=== PATIENT | male | born 1955 | race Caucasian/White ===

== ENCOUNTER 2020-03-19 07:43 | Outpatient (CLI) | payer BC, SELFPAY ==
--- NOTE | 2020-03-19 07:45 | ECG_ITS ---
Measurements Intervals [place] Rate: 66 P: 4 DC: 134 QRS: 4 QRSD: 89 T: 18 QT: 384 QTc: 402 Interpretive Statements SINUS RHYTHM DELAYED PRECORDIAL R/S TRANSITION BASELINE ARTIFACT- I, III, AVR, AVL, AVF BORDERLINE ECG Electronically Signed On 03-19-2020 8:13:26 RN [employer] by Wayne Payan D.O.
== END 2020-03-19 07:44 | disposition home or self-care (01) ==
PROVIDERS: PCP Pediatrics; Visit Provider Plastic Surgery
DX: Z01.818 Encounter for other preprocedural examination (principal); I10 Essential (primary) hypertension; R94.31 Abnormal electrocardiogram [ECG] [EKG]
CPT/HCPCS: 93005

== ENCOUNTER 2020-03-22 00:47 | Outpatient (CLI) | payer BC, SELFPAY ==
[2020-03-22 18:47] LABS: SARS-CoV-2 RNA PCR Negative
== END 2020-03-22 00:48 | disposition home or self-care (01) ==
LOC: ANHCOVIDDT 00:47
PROVIDERS: PCP Pediatrics; Visit Provider Plastic Surgery
DX: Z01.812 Encounter for preprocedural laboratory examination (principal); Z20.822 Contact with and (suspected) exposure to COVID-19
CPT/HCPCS: C9803; U0003; U0005

== ENCOUNTER 2020-03-26 02:19 | Day surgery (SDC) | payer BC, SELFPAY ==
[2020-03-14 13:54] VITALS: BMI 30.1
[2020-03-26 06:01] VITALS: BP 121/75; PULSE 65; RESP 14; TEMP 36.4; O2SAT 99
[2020-03-26] MEDS: LACTATED RINGERS 1,000 ML 30 ML IV CONT (06:30)
--- NOTE | 2020-03-26 07:06 | P.PNAN_ITS ---
Anes - Initial Pre Proc Eval Procedure: Operation Date: 03/26/20 07:30 Proposed Procedures p Excision Basal Cell Carcinoma Right Cheek with Frozen Section - Raymon Saenz MD Date/Time: 03/26/20 07:06 Surgeon: Raymon Saenz MD Pre Op Diagnosis: bcca right cheek Patient Data Age: 64 Gender: M Height: 5 ft 3 in Weight: 79.76 kg Last Vital Signs Temp 97.6 F 03/26/20 06:01 Pulse 65 03/26/20 06:01 Resp 14 03/26/20 06:01 BP 121/75 03/26/20 06:01 Pulse Ox 99 03/26/20 06:01 Allergies Allergy/AdvReac Type Severity Reaction Status Date / Time No Known Allergies Allergy Verified 03/26/20 06:10 Home Medications Medication Instructions Recorded Confirmed Type lisinopril 5 mg PO DAILY 03/14/20 03/26/20 History patiromer calcium sorbitex 8.4 g PO 3XW 03/14/20 03/26/20 History [[place]] Patient hx anesthesia problems: none Family hx anesthesia problems: none [facility] Past Medical History Medical History (Updated 03/26/20 @ 07:06 by Anish Stubbs MD) Chronic kidney disease (CKD) stage G1/A2, glomerular filtration rate (GFR) equal to or greater than 90 mL/min/1.73 square meter and albuminuria creatinine ratio between 30-299 mg/g Hypertension Social History Social History Smoking status: Never smoker Living arrangements: with family Gender identity (if verbalized by the patient): Male Spiritual care concerns: No Anes - Eval Final PreProcedure Day of Procedure 03/26/20 07:06 Patient weight: overweight Heart: regular rate and rhythm Lungs: clear to auscultation Airway: Mallampati scale class II Neurological: alert and oriented Last oral intake: >/= 8 hours ASA classification: III Emergent: no Anesthetic plan: proceed Anesthesia type and monitoring: general GIVS and standard monitoring Informed Consent: The patient's anesthetic plan and its attendant risks and benefits were discussed with the patient/family/POA. Questions were solicited and answers provided to the satisfaction of the patient/family/POA.
--- NOTE | 2020-03-26 07:14 | WPDHPUPDATE1 ---
History and Physical Update Update Date/Time: 03/26/20 07:14 History and Physical has been reviewed, including an updated exam of the patient. There are NO changes in the patient's condition. Risks, benefits, and alternatives have been discussed and questions answered. Patient agrees to proceed with procedure.
[2020-03-26] MEDS: LIDO 1%/EPINEPHRINE 1:100,000 50 ML VIAL INFILTRATE (07:38)
[2020-03-26] MEDS: BACITRACIN OINTMENT 15 GM TUBE 1 APPLIC TOPICAL (07:44)
--- NOTE | 2020-03-26 07:52 | SUR.OPER ---
Frozen section sent with CUAUHTEMOC Orozco to pathology, received by Ashley
--- NOTE | 2020-03-26 08:07 | PM.OP ---
Procedure Note - Brief Procedure Note - Brief Date of procedure: 03/26/20 Pre-op diagnosis: bcca right cheek Post-op diagnosis: same Procedure performed: 1.4 cm excision of BCC or right cheek with FS and complex repair 6 cm. Anesthesia: MAC Surgeon: Raymon Saenz MD Estimated blood loss (mL): 2 Drains: No Packing: No Pathology: yes Complications: No immediate complications Condition: stable
--- NOTE | 2020-03-26 08:24 | SUR.OPER ---
re-excison basal cell carcinoma right cheek 6 to 9. suture at new 7 O'clock. sent with Julio C Dubose RN. Received in pathology by Ashley
--- NOTE | 2020-03-26 08:52 | PM.PROC ---
Procedure Note - Detailed Date of procedure: 03/26/20 Pre-op diagnosis: bcca right cheek Post-op diagnosis: same Surgeon: Raymon Saenz MD
[2020-03-26 09:00] VITALS: BP 115/64; PULSE 81; RESP 12; O2SAT 95
--- NOTE | 2020-03-26 09:04 | PM.PROC ---
Procedure Note - Detailed Date of procedure: 03/26/20 Pre-op diagnosis: bcca right cheek Post-op diagnosis: same Procedure performed: 1.4 cm excision of BCC of right cheek with FS x2 and complex repair 6 cm. Description of procedure: The appropriate site on the patient's right cheek was marked in the holding area. He was taken to the operating room and placed supine on the operating table. A time-out was held and confirmed. He was given sedation anesthesia with an LMA. The face was prepped and draped in usual fashion. The site was examined under operating room lights in carefully marked for excision. The area was widely infiltrated with 1% lidocaine with epinephrine. The excision was carried out as marked and the most superior aspect marked with a suture for 12 o'clock. The specimen sent for frozen section. The report was the 7-8 o'clock margin was positive. A re-excision encompassing the 6-9 o'clock margin approximately 3 mm wide was again sent to pathology marked at the 7 o'clock point. Pathologist reported that all margins were free. The wound required extensive undermining with a 15 blade a more than a cm to cm and half in all directions this allowed coaptation of the fairly Anna skin. The closure was done with intradermal 4-0 Vicryl several sites standing cones were removed both ends and the skin closed with a running 5 0 nylon tolerated well Anesthesia: MAC Surgeon: Raymon Saenz MD Estimated blood loss (mL): 2 Packing: No Pathology: yes Complications: No immediate complications Condition: stable Disposition: same day
[2020-03-26 09:30] VITALS: BP 108/67; PULSE 80; RESP 12
== END 2020-03-26 09:44 | disposition home or self-care (01) ==
PROVIDERS: PCP Pediatrics; Visit Provider Plastic Surgery
PROC: (CPT 11642; principal; 2020-03-26 07:30)
DX: C44.319 Basal cell carcinoma of skin of other parts of face (principal); I12.9 Hypertensive chronic kidney disease with stage 1 through stage 4 chronic kidney disease, or unspecified chronic kidney disease; N18.1 Chronic kidney disease, stage 1
CPT/HCPCS: 11642; 13132; 88305; 88331; 88332; A9270; J2250; J2704; J3010; J7120

== ENCOUNTER → 2021-03-25 08:10 | Outpatient (CLI) | payer BC, SELFPAY ==
--- NOTE | ~2021-03-25 | XR_ITS ---
EXAMINATION: XR hip BI wo pelvis, XR lumbar spine 2-3V DATE: 03/25/2021 08:25 INDICATION: Bilateral hip pain TECHNIQUE: 1. Supine anteroposterior, lateral and coned-down lateral lumbosacral views of the lumbar spine were obtained. 2. Anteroposterior and frog-leg lateral views of the left hip and anteroposterior and frog-leg latera l views of the right hip were obtained. COMPARISON: None. FINDINGS: Lumbar spine: Bilateral hypoplastic riblets at which for purposes of this report will be designated L1. There are 4 more caudal nonrib-bearing lumbar segments L2-L5. There is asymmetric joint space narrowing at a few level is in the lumbar spine with mild right-sided disc height loss at L2-L3 and L4-L5 and moderate left-sided disc height loss at L3-L4. Vertebral body heights are normal. Mild to moderate lower lumba r predominant facet osteoarthritis. Normal bowel gas pattern. Alignment is normal. No fracture. Left hip joint space is normal. Mild right hip osteoarthritis with mild nonuniform joint space narrowing superolaterally and small marginal osteophytes about the femora l head. Indistinct cortices at the bilateral sacroiliac joints with mild subarticular sclerosis along the iliac side of the joint spaces suspicious for mild bilateral sacroiliitis. IMPRESSION: 1. Mild to moderate lumbar spondylosis. 2. Mild right hip osteoarthritis. 3. Relatively symmetric mild bilateral sacroiliitis which could be due to enteropathic arthritis, ank ylosing spondylitis, rheumatoid arthritis versus osteoarthritis or symmetric appearance of more typic ally asymmetric psoriatic or reactive arthritis. Reviewed, dictated and finalized at location A. WORKER IMPRESSION: 1. Mild to moderate lumbar spondylosis. 2. Mild right hip osteoarthritis. 3. Relatively symmetric mild bilateral sacroiliitis which could be due to enter opathic arthritis, ankylosing spondylitis, rheumatoid arthritis versus osteoart hritis or symmetric appearance of more typically asymmetric psoriatic or reacti ve arthritis.
== END ==
PROVIDERS: PCP Pediatrics; Visit Provider Pediatrics
DX: M16.11 Unilateral primary osteoarthritis, right hip (principal); M47.896 Other spondylosis, lumbar region; M53.3 Sacrococcygeal disorders, not elsewhere classified
CPT/HCPCS: 72100; 73521